=== PATIENT | male | born 1975 | race Caucasian/White ===

== ENCOUNTER 2018-01-24 03:15 | Emergency (ER) | payer BC ==
[2018-01-24] MEDS ORDERED: Ketorolac INJ* 30 MG/ML 1 ML VIAL IV PUSH ONE (03:53)
[2018-01-24] MEDS ORDERED: Diazepam SYRINGE* 5 MG/ML 2 ML SYRINGE (10 MG total) IV ONE (03:53)
[2018-01-24] MEDS ORDERED: Morphine INJ* 4 MG/ML 1 ML SYRINGE (NEW SYRINGE VERSION) IV ONE (03:53)
[2018-01-24 04:29] LABS: ABS Basophils 0 10^3/ul (0-0.2); ABS Eosinophils 0.1 10^3/ul (0-0.6); ABS Lymphocytes 1.8 10^3/ul (1.0-4.8); ABS Monocytes 0.5 10^3/ul (0-0.8); ABS Neutrophils 3.1 10^3/ul (1.5-7.7); ABS Nucleated RBC 0 10^3/ul; Hematocrit 44 % (42-52); Lymphocyte % 32.3 % (25-47); Mean Corpuscular HGB Conc 34 g/dl (31-36); Mean Corpuscular Hemoglobin 30 pg (27-31); Mean Corpuscular Volume 87 fL (80-94); Mean Platelet Volume 8 um3 (7.4-10.4); Nucleated Red Blood Cells % 0.1; Platelet Count 212 10^3/ul (150-450); Red Blood Count 5.08 10^6/ul (4.0-5.4); Red Cell Distribution Width 13 % (10.5-15); White Blood Count 5.5 10^3/ul (3.5-10.8)
[2018-01-24] MEDS ORDERED: Diazepam INJ (NF) 5 MG/ML 10 ML VIAL (50 MG TOTAL) IV ONE (05:00)
[2018-01-24 05:19] LABS: EGFR Non-African American 111.9 (>60)
[2018-01-24] MEDS ORDERED: Dexamethasone IV* 4 MG/ML 1 ML (4 MG) IV SLOW PU ONE (05:35)
[2018-01-24 05:53] VITALS: BP 140/107
--- NOTE | 2018-01-24 06:03 | ED ---
Belinda Sky Thomas, scribed for To Guevara MD on 01/24/18 at 0350 . Back Pain - HPI Summary HPI Summary: The patient is a 42 year old male presenting with back pain that began two weeks ago but significantly worsened two days ago. The pain is located in the middle of his upper back. The pain is described as a knot. The pain radiates to his neck and right upper extremity. He also complains of numbness to his right upper extremity. - History of Current Complaint Chief Complaint: EDBackInjuryPain Stated Complaint: BACK/SHOULDER PAIN Time Seen by Provider: 01/24/18 03:39 Hx Obtained From: Patient Onset/Duration: Lasting Weeks, Still Present, Worse Since - two days ago Onset/Duration: Still Present Timing: Constant Back Pain Location: Is Discrete @ - middle of upper back Severity Currently: Severe Pain Intensity: 8 Pain Scale Used: 0-10 Numeric Character: Unable to Describe - patient describes pain as a knot Associated Signs And Symptoms: Positive: Numbness - to RUE. Negative: Fever - Allergies/Home Medications Allergies/Adverse Reactions: Allergies Allergy/AdvReac Type Severity Reaction Status Date / Time No Known Allergies Allergy Verified 01/24/18 03:19 PMH/Surg Hx/FS Hx/Imm Hx Endocrine/Hematology History: Denies: Hx Diabetes Cardiovascular History: Denies: Hx Hypertension Infectious Disease History: No Infectious Disease History: Denies: Traveled Outside the [place] in Last 30 Days - Family History Known Family History: Positive: Cardiac Disease - Social History Occupation: Employed Full-time Alcohol Use: Occasionally Hx Tobacco Use: No Smoking Status (MU): Never Smoked Tobacco Review of Systems Negative: Fever Positive: Other - Back pain Positive: Numbness All Other Systems Reviewed And Are Negative: Yes Physical Exam - Summary Physical Exam Summary: VITAL SIGNS: Reviewed. GENERAL: Patient is a well-developed and nourished male who is lying comfortable in the stretcher. Patient is not in any acute respiratory distress. HEAD AND FACE: No signs of trauma. No ecchymosis, hematomas or skull depressions. No sinus tenderness. EYES: PERRLA, EOMI x 2, No injected conjunctiva, no nystagmus. EARS: Hearing grossly intact. Ear canals and tympanic membranes are within normal limits. MOUTH: Oropharynx within normal limits. NECK: C-spine tenderness. Supple, trachea is midline, no adenopathy, no JVD, no carotid bruit, neck with full ROM. CHEST: Symmetric, no tenderness at palpation LUNGS: Clear to auscultation bilaterally. No wheezing or crackles. CVS: Regular rate and rhythm, S1 and S2 present, no murmurs or gallops appreciated. ABDOMEN: Soft, non-tender. No signs of distention. No rebound no guarding, and no masses palpated. Bowel sounds are normal. BACK: There is upper thoracic spine tenderness. EXTREMITIES: FROM in all major joints, no edema, no cyanosis or clubbing. NEURO: Alert and oriented x 3. No acute neurological deficits. Speech is normal and follows commands. Neurological exam is intact including sensation in both hands. SKIN: Dry and warm Triage Information Reviewed: Yes Vital Signs On Initial Exam: Initial Vitals Temp Pulse Resp BP Pulse Ox 97.4 F 89 20 163/112 100 01/24/18 03:16 01/24/18 03:16 01/24/18 03:16 01/24/18 03:16 01/24/18 03:16 Vital Signs Reviewed: Yes Diagnostics - Vital Signs Vital Signs Temp Pulse Resp BP Pulse Ox 01/24/18 03:16 97.4 F 89 20 163/112 100 - Laboratory Result Diagrams: 01/24/18 04:20 01/24/18 05:28 Lab Statement: Any lab studies that have been ordered have been reviewed, and results considered in the medical decision making process. - CT CT T-Spine CT Interpretation: No Acute Changes - Minimal spondylosis. No acute fracture or malalignment. No CT evidence for disc herniation. Dr. Guevara has reviewed this report. CT Interpretation Completed By: Radiologist CT C-Spine CT Interpretation: No Acute Changes - Multilevel spondylosis. Posterior disc- osteophyte complexes at several levels, causing minimal canal stenosis at C3-C4 and C6-C7. Neural foraminal stenosis is minimal and bilateral at C3-C4, minimal on the right at C4-C5, and minimal on the left and marked on the right at C5- C6. Dr. Guevara has reviewed this report. CT Interpretation Completed By: Radiologist Re-Evaluation - Re-Evaluation First Eval Re-Evaluation Time: 05:58 Comment: Results discussed. Patient will be discharged. Back Pain Course/Dx - Course Assessment/Plan: The patient is a 42 year old male presenting with back pain that began two weeks ago but significantly worsened to days ago. The pain is located in the middle of his upper back. Valium, Toradol, and morphine. CT C- Spine shows Multilevel spondylosis. Posterior disc-osteophyte complexes at several levels, causing minimal canal stenosis at C3-C4 and C6-C7. Neural foraminal stenosis is minimal and bilateral at C3-C4, minimal on the right at C4 -C5, and minimal on the left and marked on the right at C5-C6. CT T-Spine shows Minimal spondylosis. No acute fracture or malalignment. No CT evidence for disc herniation. He patient is diagnosed with cervical radiculopathy. He will follow up with neurosurgery. He is prescribed Flexeril, Decadron, and Motrin. - Diagnoses Provider Diagnoses: Cervical radiculopathy Discharge - Sign-Out/Discharge Documenting (check all that apply): Discharge - Discharge Plan Condition: Stable Disposition: HOME Prescriptions: Cyclobenzaprine TAB* [Flexeril 10 MG TAB*] 10 mg PO TID PRN #20 tab PRN Reason: Spasms Dexamethasone TAB* [Decadron TAB*] 4 mg PO TID #20 tab Ibuprofen TAB* [Motrin TAB* 800 MG] 800 mg PO Q6H PRN #30 tab PRN Reason: Pain Patient Education Materials: Cervical Radiculopathy (ED) Referrals: Richy Caldwlel MD [Medical Doctor] - 1 Day Additional Instructions: Call Dr. Caldwell's office on 01/24/18 to schedule an appointment. Return to the emergency department for any new or worsening symptoms. The documentation as recorded by the Belinda james Thomas accurately reflects the service I personally performed and the decisions made by Ismael gaona Abdul, MD.
--- NOTE | 2018-01-24 08:12 | RAD ---
INDICATION: Neck and upper back pain COMPARISON: None. TECHNIQUE: Noncontrast axial source images were acquired on the cervical and thoracic spine with coronal and sagittal reformatting. FINDINGS: CERVICAL: Mild degenerative changes of the cervical spine includes loss of intervertebral disc height at the mid-level and lower cervical spine. There is a mild degree of straightening of the lower cervical spine. The vertebral bodies and facet joints are otherwise appropriately aligned. The odontoid and the atlantodental interval are normal. There is mild broad-based disc protrusion at C3/C4 combining with uncovertebral hypertrophy to cause a mild degree of bilateral neural foraminal stenosis broad-based disc protrusion at C4/C5 combines with uncovertebral hypertrophy to cause a mild degree of neural foraminal stenosis. Broad-based disc protrusion combining with facet arthropathy and uncovertebral hypertrophy at C5/C6 causes a mild degree of bilateral neural foraminal stenosis. A similar appearance is seen at C6/C7. The prevertebral soft tissues appear normal. The visualized soft tissue elements of the neck are normal. THORACIC: There is a mild degree of intervertebral disc height loss at the upper and mid level thoracic spine. The vertebral bodies are appropriately aligned. There is no evidence of fracture. No significant disc herniation is noted. The visualized lungs are grossly clear. The solid organs visualized are normal. IMPRESSION: Degenerative changes of the cervical and thoracic spine as described above without CT evidence of acute fracture or severe spondylolisthesis. Superior characterization can be made with MRI if clinically warranted.
== END 2018-01-24 06:06 | disposition home or self-care (01) ==
LOC: ED 03:15
DX: M54.12 Radiculopathy, cervical region (principal); M54.9 Dorsalgia, unspecified
CPT/HCPCS: 36415; 72125; 72128; 80053; 85025; 96374; 96375; 99284; J1100; J1885; J2270; J3360